=== PATIENT | male | born 1965 | race Caucasian/White ===

== ENCOUNTER 2018-03-20 10:22 | Day surgery (SDC) | payer OTHER ==
[~2018-03-20 10:22] MED LIST: ACETAMINOPHEN 1,000 MG/100 ML BTL IV ONE; CEFAZOLIN 2 Gram 2 GM/50 ML BAG IVPB ONE
[2018-03-20] MEDS ORDERED: KETOROLAC 30 MG/ML VIAL IVP ONE (10:23)
[2018-03-20] MEDS ORDERED: MORPHINE SULFATE 4MG/ML PREFILLED SYRINGE IVP ONE (10:23)
[2018-03-20] MEDS ORDERED: PROPOFOL 10 MG/ML VIAL IV ONE (10:23)
[2018-03-20] MEDS ORDERED: SEVOFLURANE 250 ML INH ONE (10:23)
[2018-03-20] MEDS ORDERED: METHYLPREDNISOLONE 40MG/VIAL IM ONE (10:23)
[2018-03-20] MEDS ORDERED: BUPIVACAINE 0.5% W/EPI MPF 30 ML VIAL IVP ONE (10:23)
[2018-03-20] MEDS ORDERED: MIDAZOLAM HCL 2MG/2ML VIAL IV ONE (10:23)
--- NOTE | 2018-03-20 17:04 | Operative Note ---
DATE: 03/20/18 PREOPERATIVE DIAGNOSIS: INTERNAL DERANGEMENT OF THE LEFT KNEE. POSTOPERATIVE DIAGNOSES: 1. GRADE 3 CHONDROMALACIA PATELLA. 2. DIFFUSE SYNOVITIS. 3. COMPLEX SPLIT TEAR INVOLVING THE POSTERIOR HORN OF THE MEDIAL MENISCUS. 4. TEAR OF THE LATERAL AND POSTERIOR HORNS OF THE LATERAL MENISCUS. PROCEDURE: 1. LEFT KNEE ARTHROSCOPY WITH PARTIAL MEDIAL AND LATERAL MENISCECTOMIES. 2. LEFT KNEE ARTHROSCOPY WITH COMPLETE SYNOVECTOMY. 3. LEFT KNEE ARTHROSCOPY WITH CHONDROPLASTY OF THE PATELLA. STAFF SURGEON: ROSALEE GAGE M.D. ANESTHESIA: GENERAL. PREPARATION: CHLORAPREP. INDIVIDUAL CONSIDERATIONS: NONE. PROCEDURE: The patient was taken to the Operating Room and placed supine on the operating table. He had a successful induction of a general anesthetic. His left lower extremity was prepped and draped in the usual fashion. Examination under anesthesia showed normal ligaments. He had a large effusion. The patient had superolateral inflow cannula placed. The skin was infiltrated with 0.5% Marcaine with Epinephrine prior and the knee was drained of a large clear effusion. An inferior medial and an inferior lateral portal were made in a similar fashion. The arthroscope was introduced through the inferolateral portal up into the pouch. The patellofemoral compartment showed grade 3 change on the patella, this was smoothed with a shaver. He had synovitis mainly in the pouch but some in both gutters and this was debrided out with a shaver. Medially , he basically had a split tear involving the posterior horn of the medial meniscus. This was debrided back to a stable rim with basket forceps and a shaver. The articular cartilage was otherwise intact. In the notch, the cruciates looked normal. Laterally, he had an anterior fringe tear and a complex degenerative tear involving the lateral and extending into the posterior horn of the lateral meniscus, which was debrided back to a stable rim with basket forceps and a shaver. The articular cartilage laterally was normal. The knee was then irrigated out with saline to remove loose floating debris. Portals were closed with izaiah and 20 mL of 0.5% plain Marcaine with Epinephrine along with 4 mg of Morphine and 40 mg DepoMedrol were injected into the knee and a sterile Bulkee compressive dressing was applied. The patient tolerated the procedure well. Needle and sponge counts were correct. Estimated blood loss was minimal. He was taken back to Recovery in good condition. There were no complications. JOB NUMBER: [id number] MTDD
== END 2018-03-20 14:40 | disposition home or self-care (01) ==
LOC: SUR 10:22
PROVIDERS: ATTEND Orthopaedic Surgery
DX: S83.232A Complex tear of medial meniscus, current injury, left knee, initial encounter (principal); S83.282A Other tear of lateral meniscus, current injury, left knee, initial encounter; M65.9 Synovitis and tenosynovitis, unspecified; M22.42 Chondromalacia patellae, left knee; E11.9 Type 2 diabetes mellitus without complications; E78.00 Pure hypercholesterolemia, unspecified; E03.9 Hypothyroidism, unspecified
CPT/HCPCS: 29880; 29876; 01400; 36416; 82948; J0690; J2274; J1030; J1885